=== PATIENT | female | born 1945 | race African-American/Black ===

== ENCOUNTER 2020-09-01 10:25 | Outpatient (CLI) | payer MEDICARE, SELFPAY ==
[2020-09-01 11:36] LABS: Basophils % 0.4 %; Eosinophils # 0.3 10^3/uL (0.0-0.8); Eosinophils % 4.6 %; Hematocrit 26.5 % (37.0-47.0); Hemoglobin 7.9 g/dL (11.5-15.3); Lymphocytes # 0.9 10^3/uL (0.8-4.8); Mean Corpuscular HGB Conc 29.8 g/dL (30.0-36.0); Mean Corpuscular Hemoglobin 27.2 pg (28.0-34.0); Mean Corpuscular Volume 91.4 fL (81-99); Mean Platelet Volume 9.2 fL (7.4-10.4); Monocytes # 0.6 10^3/uL (0.2-0.9); Monocytes % 7.8 %; Neutrophils # 5.54 10^3/uL (1.8-7.7); Neutrophils % 74.4 %; Nucleated Red Blood Cells % 0 %; Platelet Count 221 10^3/cmm (130-400); White Blood Count 7.4 10^3/uL (4.0-10.0)
== END 2020-09-01 10:26 | disposition home or self-care (01) ==
PROVIDERS: Visit Provider Nurse Practitioner Family
DX: D64.9 Anemia, unspecified (principal)
CPT/HCPCS: 85025

== ENCOUNTER → 2020-09-05 08:09 | Day surgery (SDC) | payer MEDICARE, SELFPAY ==
[2020-09-05 08:49] VITALS: BP 128/72; PULSE 100; RESP 18; TEMP 36.4; O2SAT 97
[2020-09-05 08:51] LABS: Basophils % 0.3 %; Eosinophils # 0.3 10^3/uL (0.0-0.8); Eosinophils % 4.1 %; Hematocrit 27.4 % (37.0-47.0); Hemoglobin 8.4 g/dL (11.5-15.3); Lymphocytes # 0.9 10^3/uL (0.8-4.8); Lymphocytes % 13.4 %; Mean Corpuscular HGB Conc 30.7 g/dL (30.0-36.0); Mean Corpuscular Hemoglobin 27.7 pg (28.0-34.0); Mean Corpuscular Volume 90.4 fL (81-99); Mean Platelet Volume 8.9 fL (7.4-10.4); Monocytes # 0.6 10^3/uL (0.2-0.9); Monocytes % 8.5 %; Neutrophils # 4.81 10^3/uL (1.8-7.7); Neutrophils % 73.1 %; Nucleated Red Blood Cells % 0 %; Platelet Count 233 10^3/cmm (130-400); Red Blood Count 3.03 10^6/uL (4.1-5.3); White Blood Count 6.6 10^3/uL (4.0-10.0)
[2020-09-05] MEDS: diphenhydrAMINE 25 mg Capsule PO (09:39)
[2020-09-05] MEDS: acetaminophen 325 mg Tablet 650 MG PO (09:39)
[2020-09-05 10:46] VITALS: BP 123/69; PULSE 82; RESP 18; TEMP 36.9; O2SAT 98
[2020-09-05 11:05] VITALS: BP 114/61; PULSE 72; RESP 18; TEMP 36.9; O2SAT 96
[2020-09-05 11:20] VITALS: BP 108/70; PULSE 80; RESP 18; TEMP 37.1
[2020-09-05 12:20] VITALS: BP 113/70; PULSE 80; RESP 18; TEMP 37.2; O2SAT 98
--- NOTE | 2020-09-05 12:31 | PC.NURSE ---
0820 Pt to OPS via wheelchair from [facility] for 2 units PRBC's as ordered per Keli. CBC and Type and screen drawn and sent to lab. Hemoglobin noted at 8.4. [facility] notified of Hg results. Orders received to transfuse 1 unit PRBC's even with Hg above 8. Transfusion started at 1050. Pt premedicated with Tylenol and Benadryl as ordered.
[2020-09-05] MEDS: sodium chloride 0.9% (100 ml) 100 ML (12:58)
--- NOTE | 2020-09-05 12:59 | PC.NURSE ---
1250 Transfusion complete. Pt tolerated one unit PRBC's without signs and symptoms of reaction. Report called to EDILIA Mark at [facility]. Pt off unit via wheelchair to be taken back to facility per facility transportation vehicle.
== END ==
PROVIDERS: Visit Provider Nurse Practitioner Family
DX: D64.9 Anemia, unspecified (principal)
CPT/HCPCS: 36415; 36430; 85025; 86850; 86900; 86920; P9016

== ENCOUNTER 2020-09-25 14:24 | Outpatient (CLI) | payer MEDICARE, SELFPAY ==
[2020-09-25 14:45] LABS: Basophils # 0.1 10^3/uL (0.0-0.1); Basophils % 0.5 %; Eosinophils # 0.3 10^3/uL (0.0-0.8); Eosinophils % 3.1 %; Hematocrit 25.4 % (37.0-47.0); Hemoglobin 7.9 g/dL (11.5-15.3); Lymphocytes # 1.9 10^3/uL (0.8-4.8); Lymphocytes % 20.8 %; Mean Corpuscular HGB Conc 31.1 g/dL (30.0-36.0); Mean Corpuscular Hemoglobin 28.8 pg (28.0-34.0); Mean Corpuscular Volume 92.7 fL (81-99); Mean Platelet Volume 10.3 fL (7.4-10.4); Monocytes # 0.8 10^3/uL (0.2-0.9); Monocytes % 8.2 %; Neutrophils # 6.19 10^3/uL (1.8-7.7); Nucleated Red Blood Cells % 0 %; Platelet Count 347 10^3/cmm (130-400); Red Blood Count 2.74 10^6/uL (4.1-5.3); Red Cell Distribution Width 19.4 % (12.1-15.1); White Blood Count 9.3 10^3/uL (4.0-10.0)
[2020-09-25 15:25] LABS: Alanine Aminotransferase 12 U/L (0-33); Albumin Level 3.7 g/dL (3.5-5.2); Alkaline Phosphatase 135 IU/L (35-105); Aspartate Amino Transferase 18 U/L (0-32); Blood Urea Nitrogen 18 mg/dL (8-23); Calcium 9.3 mg/dL (8.5-10.5); Carbon Dioxide 31 mmol/L (22-29); Chloride 94 mmol/L (98-107); Glucose 91 mg/dL (65-115); Osmolality Calculated 279 mOsm/kg (285-295); Sodium 134 mmol/L (136-145); Total Bilirubin 0.7 mg/dL (0.15-1.2); Total Protein 6.7 g/dL (6.6-8.7)
[2020-09-25 15:45] LABS: Anion Gap 14.4 (5-19); Potassium 5.4 mmol/L (3.5-5.1)
[2020-09-25 16:34] LABS: Slide Review Slide Review Perform
== END 2020-09-25 14:25 | disposition home or self-care (01) ==
PROVIDERS: Visit Provider Colon & Rectal Surgery
DX: K57.92 Diverticulitis of intestine, part unspecified, without perforation or abscess without bleeding (principal); E11.9 Type 2 diabetes mellitus without complications; I10 Essential (primary) hypertension; E78.5 Hyperlipidemia, unspecified; K21.9 Gastro-esophageal reflux disease without esophagitis
CPT/HCPCS: 80053; 85025